=== PATIENT | male | born 1985 | race Caucasian/White ===

== ENCOUNTER 2016-11-23 22:32 | Emergency (ER) | payer MEDICAID ==
[~2016-11-23] VITALS: Ht 190.5 cm; Wt 77.3 kg
[2016-11-23 22:34] VITALS: BP 138/80; PULSE 107; RESP 16; TEMP 98.3; O2SAT 100
[2016-11-23] MEDS ORDERED: SUBO8MIS SL (22:45)
[2016-11-23] MEDS ORDERED: BENZ0.5T PO (22:45)
[2016-11-23] MEDS ORDERED: RISP1TAB2 PO (22:45)
[2016-11-23] MEDS ORDERED: ESCI10TA PO (22:45)
[2016-11-23 22:52] VITALS: BP 134/79; PULSE 103; RESP 18; O2SAT 98
--- NOTE | 2016-11-23 23:06 | PD ---
HPI Chief Complaint: Respiratory Distress Time Seen by Provider: 22:56 Travel History International Travel<30 days: No Contact w/Intl Traveler<30days: No Traveled to known affect area: No History of Present Illness HPI This 31-year-old male says he been not feeling well. He feels like his throat is closing. He has been very jittery and has been breaking out in a cold sweat. He has a history of substance abuse. He has been on heroin in the past. For the past month he has been on Suboxone. He says that for the last few days she had a relapse was using heroin. He does not inject but he uses it by snorting. He is to yesterday. Today he took Suboxone. He feels like his throat is closing. He has a history of anxiety. He is also on psychiatric medicines including Abilify and Cogentin. He has been on Xanax in the past but he does not have any right now. PFSH Past Medical History Depression: Yes Diminished Hearing: No Medical other: Yes (Recovering heroin addict) Schizophrenia: Yes Tetanus Vaccination: < 5 Years Influenza Vaccination: No (unknown date) Past Surgical History Other Surgery: Yes (Rotater cuff surgery) Social History Alcohol Use: No Tobacco Use: Yes (1 ppd) Substance Use: Yes (Heroin snorted yesterday; is in treatment program but relapsed) Allergies-Medications (Allergen,Severity, Reaction): Coded Allergies: No Known Allergies (Unverified , 11/23/16) Reported Meds & Prescriptions Reported Meds & Active Scripts Active Reported Risperidone 1 Mg Tab 1 Mg PO DAILY Benztropine (Benztropine Mesylate) 0.5 Mg Tab 0.5 Mg PO BID Escitalopram (Escitalopram Oxalate) 10 Mg Tab 10 Mg PO DAILY Suboxone Sublingual Film (Buprenorphine-Naloxone Sublingual Film) 8-2 Mg Film 1 Film SL Unique ID number required: Review of Systems General / Constitutional: Positive: Chills, No: Fever Eyes: No: Diploplia, Blurred Vision HENT: No: Headaches, Vertigo Cardiovascular: No: Chest Pain or Discomfort, Palpitations Respiratory: Positive: Shortness of Breath, No: Cough Gastrointestinal: No: Nausea, Vomiting Genitourinary: No: Urgency, Frequency Musculoskeletal: No: Myalgias Skin: No Rash, No Itching Neurologic: No: Weakness Psychiatric: Positive: Anxiety Physical Exam Narrative GENERAL: Well-developed male. His oxygen saturation is in the high 90s SKIN: Focused skin assessment warm/dry. HEAD: Atraumatic. Normocephalic. EYES: Pupils equal and round. No scleral icterus. No injection or drainage. ENT: No nasal bleeding or discharge. Mucous membranes pink and moist. Serum pharynx is erythematous NECK: Trachea midline. No JVD. CARDIOVASCULAR: Regular rate and rhythm. No murmur appreciated. RESPIRATORY: No accessory muscle use. Clear to auscultation. Breath sounds equal bilaterally. GASTROINTESTINAL: Abdomen soft, non-tender, nondistended. Hepatic and splenic margins not palpable. MUSCULOSKELETAL: No obvious deformities. No clubbing. No cyanosis. No edema. NEUROLOGICAL: Awake and alert. No obvious cranial nerve deficits. Motor grossly within normal limits. Normal speech. PSYCHIATRIC: Appropriate mood and affect; insight and judgment normal. Data Data Last Documented VS Vital Signs Date Time Temp Pulse Resp B/P Pulse Ox O2 Delivery O2 Flow Rate FiO2 11/23/16 22:52 103 18 134/79 98 Room Air 11/23/16 22:34 98.3 Orders Group A Rapid Strep Screen (11/23/16 23:03) Lorazepam (Ativan) (11/23/16 23:15) Strep Culture (Group A) (11/23/16 23:16) MDM Medical Decision Making Medical Screen Exam Complete: Yes Emergency Medical Condition: Yes Medical Record Reviewed: Yes Differential Diagnosis Differential includes pneumonia, anxiety, pharyngitis Narrative Course I have ordered a strep screen. I also ordered Ativan and I suspect this may be related to anxiety or has change in medications. He does admit to using heroin but has not used it intravenously, only nasally which should mitigate the infectious complications. He may be having some symptoms of withdrawal. Ativan appears to provide some relief. He does request something to use at home for anxiety. I'm reluctant to prescribe benzos and will prescribe some Vistaril Diagnosis Primary Impression: Anxiety Scripts Hydroxyzine Pamoate (Vistaril)50 Mg Cap50 Mg PO TID #30 CAP Ref 0 Prov:Wilian Roy MD 11/23/16 Disposition: 01 DISCHARGE HOME Condition: Stable Wilian Roy MD Nov 23, 2016 23:05
[2016-11-23] MEDS ORDERED: LORazepam 2 MG TAB PO ONE (23:15)
[2016-11-23] MEDS ORDERED: VIST50CA PO (23:43)
== END 2016-11-23 23:53 | disposition home or self-care (01) ==
LOC: PHED 22:32
DX: F41.9 Anxiety disorder, unspecified (principal); F17.200 Nicotine dependence, unspecified, uncomplicated; Z86.59 Personal history of other mental and behavioral disorders
CPT/HCPCS: 87081; 87880; 99283